=== PATIENT | female | born 1955 | race Caucasian/White ===

== ENCOUNTER → 2016-07-28 | Outpatient (CLI) | payer OTHER ==
--- NOTE | 2016-07-28 10:01 | MA ---
Right Unilateral Digital Diagnostic Mammogram History: Six-month follow up of probable benign asymmetry. Comparison: Mammograms through March 03, 2007. Technique: CC and MLO views. Findings: The parenchyma in the area of interest on the CC views appears unchanged since 2006. There is no definite asymmetry on the MLO views, similar to the previous diagnostic mammograms. No suspicio us calcifications are identified. Impression: BI-RADS 2: Benign Findings. Recommendations: Screening mammograms in February 2017. Findings and recommendations were given to the patient at the time of the study. [facility] will send a result letter to the patient.
== END ==
LOC: BRMIMAGING 09:14
DX: R91.8 Other nonspecific abnormal finding of lung field (principal)
CPT/HCPCS: G0206

== ENCOUNTER → 2017-02-11 | Outpatient (CLI) | payer OTHER | LOC: BRMIMAGING 14:44 | PROVIDERS: ATTEND Family Medicine | DX: Z12.31 Encounter for screening mammogram for malignant neoplasm of breast (principal) | CPT/HCPCS: G0202 ==

== ENCOUNTER → 2018-11-19 | Outpatient (CLI) | payer OTHER | LOC: BRMIMAGING 14:56 | PROVIDERS: ATTEND Family Medicine | DX: R06.00 Dyspnea, unspecified (principal) | CPT/HCPCS: 71046-PO ==